=== PATIENT | male | born 1955 | race Caucasian/White ===

== ENCOUNTER 2017-06-30 16:35 | Inpatient (IN) | payer OTHER ==
[~2017-06-30] VITALS: Ht 162.6 cm; Wt 86.8 kg
--- NOTE | 2017-06-30 16:47 | NUR ---
EKG IN PROGRESS
--- NOTE | 2017-06-30 16:50 | NUR ---
PT IN STABLE CONDITION. RESP EVEN AND UNLABORED, RA. VS STABLE. NAD NOTED. PT TO WAIT IN LOBBY DUE TO NO BEDS AVAILABLE AT THIS TIME
--- NOTE | 2017-06-30 17:59 | NUR ---
PT TO ROOM
--- NOTE | 2017-06-30 18:26 | NUR ---
PT PRESENTS TO ED WITH C/O MIDSTERNAL NON-RADIATING CP THAT LASTED FOR 1 HOUR. PT STATES PAIN STARTED AFTER FAMILY ARGUMENT. PT REPORTS PAIN TO BE SQUEEZING IN NATURE AND RATED PAIN 8/10 WHEN HE WAS IN PAIN. PT IS NOT CURRENTLY IN ANY PAIN. PT ALSO HAS C/O MUSA THAT HE RATES 3/10 AND SHARP IN QUALITY. PT DENIES N/V/D, DENIES PAIN IN CHEST CURRENTLY, DENIES SOB. PT CHANGED INTO GOWN AND CONNECTED TO CARDIORESP MONITORS.
--- NOTE | 2017-06-30 18:27 | NUR ---
XRAY AT BEDSIDE.
[2017-06-30 18:50] LABS: BASOPHIL % 0.6 % (0-2); PLATELET COUNT 169 x10^3mcL (130-400)
[2017-06-30 18:52] LABS: RED CELL DISTRIBUTION WIDTH 14.8 % (11.5-14.5)
[2017-06-30 18:59] LABS: CALCIUM 8.5 mg/dL (8.5-10.1); CARBON DIOXIDE 26.4 mmol/L (21-32); CREATININE SERUM 1.3 mg/dL (0.7-1.3)
[2017-06-30 19:04] LABS: ALBUMIN 3.6 g/dL (3.4-5.0); BILIRUBIN TOTAL 0.4 mg/dL (0.20-1.00); TOTAL PROTEIN, SERUM 7.7 g/dL (6.4-8.2)
--- NOTE | 2017-06-30 19:05 | NUR ---
REPORT GIVEN TO ALVA MOLINA TO ASSUME CARE OF PT.
--- NOTE | 2017-06-30 19:12 | NUR ---
REPORT RECEIVED FOR THIS PT. UPON ENETERING THE ROOM THE PT DENIES ANY NEEDS, NO ACUTE DISTRESS NOTED, RESP EVEN AND UNLABORED. PT AAO X4, ON CM AND PULSE OX.
--- NOTE | 2017-06-30 19:17 | NUR ---
DR TOUSSAINT AT BEDSIDE.
--- NOTE | 2017-06-30 20:24 | NUR ---
REPORT GIVEN TO JESSE MALONYE ON MST FOR THIS PT.
[2017-06-30 21:14] LABS: MAGNESIUM 2.1 mg/dL (1.8-2.4); PHOSPHOROUS 2.9 mg/dL (2.5-4.9)
[2017-06-30 21:15] LABS: CHOLESTEROL/HDL RATIO 4.7
[2017-06-30 21:23] LABS: T3 TOTAL 0.78 ng/mL
[2017-06-30 21:24] VITALS: BP 146/76
[2017-06-30 21:53] LABS: FREE T4 1.13 ng/dL (0.76-1.46); FREE THYROXINE INDEX 3.7 ug/dL (1.4-4.5); T4(THYROXINE) 9.2 ug/dL (4.7-13.3)
--- NOTE | 2017-06-30 22:21 | NUR ---
UNABLE TO PERFORM EGK ORDERED FOR 06/30/17 AT 2020 HOURS DUE TO EXCESS HAIR ON PT'S CHEST. LEADS WILL NOT STICK, EVEN IF TAPED DOWN.
[2017-07-01 03:49] LABS: BASOPHIL % 0.6 % (0-2); PLATELET COUNT 150 x10^3mcL (130-400)
[2017-07-01 03:50] LABS: RED CELL DISTRIBUTION WIDTH 14.9 % (11.5-14.5)
[2017-07-01 04:00] LABS: RED BLOOD CELLS 3.81 M/mm3 (4.52-5.90)
[2017-07-01 04:05] LABS: CALCIUM 8.4 mg/dL (8.5-10.1); CARBON DIOXIDE 27.1 mmol/L (21-32); CHLORIDE SERUM 106 mmol/L (98-107); CREATININE SERUM 1.2 mg/dL (0.7-1.3); GFR1 > 60 mL/min; GLUCOSE SERUM 133 mg/dL (74-106); IRON 89 ug/dL (65-170); PHOSPHOROUS 3.1 mg/dL (2.5-4.9); POTASSIUM SERUM 3.8 mmol/L (3.5-5.1); SODIUM SERUM 141 mmol/L (136-145); TOTAL IRON BINDING CAPACITY 313 ug/dL (250-450)
--- NOTE | 2017-07-01 05:02 | NUR ---
PT SLEPT THOUGH THE NIGHT. HE HAD NO EPISODE OF CHEST PAIN SINCE ARRIVAL ON THE FLOOR. HE REMAINS ALERT AND ORIENTED X4. NO SOB NOTED. IVF NS AT 10 CC/HR INFUSING WELL VIA RTAC.
[2017-07-01 06:03] VITALS: BP 104/54
--- NOTE | 2017-07-01 06:30 | NUR ---
UNABLE TO OBTAIN EGK ORDERED FOR 07/01/17 AT 0600 DUE TO EXCESS HAIR ON PT'S CHEST.
--- NOTE | 2017-07-01 07:30 | NUR ---
PATIENT RECEIVED AND SEEN. AT THIS TIME THE PATIENT IS RESTING IN BED. AAOX4, APPEARS CALM. NO SIGNS OF ACUTE DISTRESS. TELE MONITOR [address] PATIENT DENIES CHEST PAIN. LUNGS CTA ON RA. BS ACTIVE. PATIENT HAS NS INFUSING IN RAC, IV APPEARS WNL. ALL SAFETY MEASURES IN PLACE. WILL CONTINUE TO MONITOR.
--- NOTE | 2017-07-01 07:50 | NUR ---
DR CREWS AND TEAM TALKED TO PATIENT IN HIS ROOM TODAY. ALL QUESTIONS WERE ANSWERED. PATIENT WAS AGREEABLE TO PLAN OF CARE. WILL CONTINUE TO MONITOR. ALL SAFETY MEASURES IN PLACE.
[2017-07-01 09:30] VITALS: BP 101/64
--- NOTE | 2017-07-01 12:00 | NUR ---
AT THIS TIME THE PATIENT IS RESTING IN BED. NO SIGNS OF ACUTE DISTRESS. NO SOB. DENIES CHEST PAIN. ALL SAFETY MEASURES ARE IN PLACE. WILL CONTINUE TO MONITOR.
[2017-07-01 12:41] LABS: microscopic required? NO
[2017-07-01 12:46] LABS: urine erythrocyte NEGATIVE (NEGATIVE)
[2017-07-01 12:54] LABS: AMPHETAMINE QUAL UR NONE DETECTED (NEG <=1000)
[2017-07-01 14:02] VITALS: BP 113/70
--- NOTE | 2017-07-01 15:00 | NUR ---
PATIENT IS RESTING IN BED CURRENTLY. DENIES CHEST PAIN AT THIS TIME. NO SOB NOTED. RESPIRATIONS EVEN AND UNLABORED ON ROOM AIR. NO SIGNS OF ACUTE DISTRESS. WILL CONTINUE TO MONITOR.
--- NOTE | 2017-07-01 16:48 | NUR ---
PATIENT WALKED A MESA GRANDE AROUND THE HOSPITAL FLOOR. TOLERATED ACTIVITY WELL, STATED HE FEELS NORMAL WHEN WALKING. GAIT STEADY AND BALANCED.
[2017-07-01] MEDS ORDERED: LIPI10 PO (17:55)
[2017-07-01] MEDS ORDERED: ECO81 PO (17:55)
[2017-07-01 17:58] VITALS: BP 105/65
[2017-07-01 18:26] VITALS: BP 105/65
== END 2017-07-01 18:50 | disposition home or self-care (01) | DRG 756 ==
LOC: ED 16:35 → DU 19:39
PROVIDERS: Emergency Medicine; ADMIT Family Medicine
DX: F41.9 Anxiety disorder, unspecified (principal); E11.65 Type 2 diabetes mellitus with hyperglycemia; I10 Essential (primary) hypertension; E03.9 Hypothyroidism, unspecified; E78.5 Hyperlipidemia, unspecified; D64.9 Anemia, unspecified; E66.9 Obesity, unspecified; D72.819 Decreased white blood cell count, unspecified; E83.51 Hypocalcemia; Z88.0 Allergy status to penicillin; Z79.4 Long term (current) use of insulin; Z79.899 Other long term (current) drug therapy; Z68.32 Body mass index [BMI] 32.0-32.9, adult
CPT/HCPCS: 83880; 84439; J3490; J7030; Q0092